=== PATIENT | male | born 1995 | race Caucasian/White ===

== ENCOUNTER → 2022-05-09 | Day surgery (SDC) | payer MEDICAID ==
[~2022-05-09] MED LIST: ACETAMINOPHEN 325MG TABLET PO PRN; ALBU18HF2 IH; ASPI-1497 PO; ATOR40TA70 PO; ATROPINE SULFATE 1MG/10ML SYR IV PRN; CARV6.2548 PO; FENTANYL CITRATE/PF 50MCG/ML 2ML VIAL ONE; FURO40TA5 PO; HEPARIN SODIUM 1,000 UNIT/1ML VIAL IV ONE; IODIXANOL 320MG/ML 100 ML BOTTLE IV ONE; LIDOCAINE HCL 1% 20ML VIAL (Pyxis) INJ ONE; LIDOCAINE HCL/PF 2% 20MG/ML 5 ML/VIAL ONE; MIDAZOLAM HCL 2 MG/2 ML VIAL ONE; ONDANSETRON HCL 4MG/2ML INJ IV PRN; SACU1TAB7 PO
== END | disposition home or self-care (01) ==
LOC: CCL 09:53
PROVIDERS: ATTEND Specialist
DX: R94.39 Abnormal result of other cardiovascular function study (principal); I10 Essential (primary) hypertension; E78.5 Hyperlipidemia, unspecified; I25.2 Old myocardial infarction; Z79.82 Long term (current) use of aspirin; Z79.899 Other long term (current) drug therapy; Z98.890 Other specified postprocedural states; Z88.1 Allergy status to other antibiotic agents
CPT/HCPCS: 93458; C1760; C1769; C1887; C1893; J1644; J2250; J3010; J3490; Q9967; 99152; G0500